=== PATIENT | female | born 1935 | race Caucasian/White ===

== ENCOUNTER 2020-10-03 14:39 | Inpatient (IN) | payer OTHER, MEDICAID ==
[~2020-10-03] VITALS: Ht 152.4 cm; Wt 61.8 kg
[2020-10-03] MEDS ORDERED: SODIUM CHLORIDE 0.9% 1000ML BAG (SEPSIS BOLUS) IV ONE (15:00)
[2020-10-03] MEDS ORDERED: VANCOMYCIN 1 G PREMIX 200 ML IV ONE (15:00)
[2020-10-03] MEDS ORDERED: PIPERACILLIN/TAZ 3.375G PREMIX 50 ML IV ONE (15:00)
[2020-10-03 16:08] LABS: BASOPHILS % 0.3 % (0.0-2.0); EOSINOPHILS % 1.7 % (0.0-5.0); HEMATOCRIT. 32.5 % (36.0-48.0); HEMOGLOBIN. 10.2 g/dL (12.0-16.0); LYMPHOCYTES % 29.6 % (20.0-50.0); MEAN CORPUSCULAR HEMOGLOBIN 29.3 pg (28.0-32.0); MEAN CORPUSCULAR VOLUME 93.4 fL (81.0-99.0); MEAN PLATELET VOLUME 11.9 fl (7.4-10.4); MONOCYTES % 13.2 % (2.0-8.0); NEUTROPHILS % 55.2 % (40.0-76.0); PLATELET 159 x1000/uL (130-400); RED BLOOD CELL COUNT 3.48 mill/uL (4.2-5.4); RED CELL DISTRIBUTION WIDTH 16.4 % (11.6-14.6)
[2020-10-03 17:19] LABS: CLARITY URINE CLEAR (CLEAR); COLOR URINE YELLOW (YELLOW); KETONES URINE NEGATIVE (NEGATIVE); LEUKOCYTE ESTERASE URINE TRACE (NEGATIVE); NITRITE URINE NEGATIVE (NEGATIVE); OCCULT BLOOD URINE NEGATIVE (NEGATIVE); PH URINE 5.5 (4.5-8.0); PROTEIN URINE NEGATIVE (NEGATIVE); UROBILINOGEN URINE 0.2 E.U./dL (0.2-1.0)
[2020-10-03 17:31] LABS: CHLORIDE 115 mEq/L (98-107)
[2020-10-03 17:46] LABS: PARTIAL THROMBOPLASTIN TIME < 21.0 sec (23.4-31.0); PROTHROMBIN TIME 10.6 sec (9.6-11.0)
[2020-10-03 19:19] LABS: VALPROIC ACID <3.0 ug/mL ug/mL (50-100)
[2020-10-03 19:26] LABS: CARBAMAZEPINE < 0.5 ug/mL (4-12); PHENOBARBITAL < 2.1 ug/mL (15.0-40.0)
[2020-10-03] MEDS ORDERED: IPRATROPIUM/ALBUTEROL 0.5-3(2.5)MG/3ML NEB NEB PRN (20:15)
[2020-10-03] MEDS ORDERED: ACETAMINOPHEN 325MG TABLET PO PRN ×2 (20:15)
[2020-10-03] MEDS ORDERED: GUAIFENESIN 200MG/10ML SUGAR FREE UDC PO PRN (20:15)
[2020-10-03] MEDS ORDERED: NITROGLYCERIN 0.4MG TABLET SL SL PRN (20:15)
[2020-10-03] MEDS ORDERED: ONDANSETRON HCL 4MG/2ML INJ IV PRN (20:15)
[2020-10-03] MEDS ORDERED: ZOLPIDEM TARTRATE 5MG TABLET PO PRN (20:15)
[2020-10-03] MEDS ORDERED: CLONIDINE 0.1MG TABLET PO PRN (20:15)
[2020-10-03] MEDS ORDERED: NA PHOS,M-B/NA PHOS,DI-BA ENEMA 118ML PR PRN (20:15)
[2020-10-03] MEDS ORDERED: MAGNESIUM/ALUMINUM HYDROXIDE/SIMETHICONE 30ML UDC PO PRN (20:15)
[2020-10-03] MEDS ORDERED: DOCUSATE SODIUM 100MG CAPSULE PO PRN (20:15)
[2020-10-03] MEDS ORDERED: LEVOFLOXACIN 500MG PREMIX 100 ML IV NR (21:00)
[2020-10-03] MEDS: ASCORBIC ACID 500 MG TABLET PO SCH (21:26)
[2020-10-03] MEDS: FAMOTIDINE 20MG TABLET PO SCH (21:26)
[2020-10-03] MEDS: ENOXAPARIN 30MG/0.3ML SYR SUBCUT SCH (21:27)
[2020-10-03] MEDS ORDERED: DEXTROSE 50% WATER 50ML SYRINGE IV PRN (21:45)
[2020-10-03 22:59] LABS: CREATINE KINASE 99 IU/L (26-192)
[2020-10-03 23:00] LABS: CREATINE KINASE MB FRACTION 1.6 ng/mL (0.5-3.6); T4 FREE 1.16 ng/dL (0.76-1.46)
[2020-10-03 23:15] LABS: FOLIC ACID (FOLATE) SERUM 15.3 ng/mL (>5.38)
[2020-10-03 23:19] VITALS: BP 156/57
[2020-10-04] MEDS: INSULIN LISPRO 100 UNITS/ML SUBCUT SCH ×4 (06:17→21:08)
[2020-10-04] MEDS: BLOOD SUGAR DIAGNOSTIC STRIP TEST SCH ×4 (06:17→21:08)
[2020-10-04 06:52] LABS: CHLORIDE 116 mEq/L (98-107)
[2020-10-04 06:53] LABS: BASOPHILS % 0.8 % (0.0-2.0); EOSINOPHILS % 2.6 % (0.0-5.0); HEMATOCRIT. 26.8 % (36.0-48.0); HEMOGLOBIN. 8.7 g/dL (12.0-16.0); LYMPHOCYTES % 31.3 % (20.0-50.0); MEAN CORPUSCULAR HEMOGLOBIN 29.5 pg (28.0-32.0); MEAN CORPUSCULAR VOLUME 90.3 fL (81.0-99.0); MEAN PLATELET VOLUME 12.1 fl (7.4-10.4); MONOCYTES % 8.5 % (2.0-8.0); NEUTROPHILS % 56.8 % (40.0-76.0); PLATELET 147 x1000/uL (130-400); RED BLOOD CELL COUNT 2.97 mill/uL (4.2-5.4); RED CELL DISTRIBUTION WIDTH 15.9 % (11.6-14.6)
[2020-10-04 07:06] LABS: PHOSPHORUS 2.4 mg/dL (2.5-4.9)
[2020-10-04 07:09] LABS: CREATINE KINASE 84 IU/L (26-192)
[2020-10-04 07:13] LABS: CREATINE KINASE MB FRACTION 1.1 ng/mL (0.5-3.6)
[2020-10-04 08:00] VITALS: BP 144/52
[2020-10-04] MEDS ORDERED: CEFTRIAXONE 1 G PREMIX 50 ML IV SCH (09:00)
[2020-10-04] MEDS: CEFTRIAXONE 1,000 MG in DEXTROSE 5% WATER 50 ML IV SCH (10:14)
[2020-10-04] MEDS: CHOLECALCIFEROL (D3) 1000 UNIT TABLET PO SCH (10:14)
[2020-10-04] MEDS: ASCORBIC ACID 500 MG TABLET PO SCH ×2 (10:15→21:07)
[2020-10-04] MEDS: ASPIRIN 325MG EC TABLET PO SCH (10:15)
[2020-10-04] MEDS: ZINC SULFATE 220 MG ( 50 ) CAPSULE PO SCH (10:15)
[2020-10-04 12:00] VITALS: BP 159/47
[2020-10-04] MEDS ORDERED: MAGNESIUM 2 G PREMIX 50 ML IV NR (14:00)
[2020-10-04 16:00] VITALS: BP 157/55
[2020-10-04 20:00] VITALS: BP 148/47
[2020-10-04] MEDS: FAMOTIDINE 20MG TABLET PO SCH (21:07)
[2020-10-04] MEDS: ENOXAPARIN 30MG/0.3ML SYR SUBCUT SCH (21:07)
[2020-10-05] VITALS: BP 114/43
[2020-10-05 04:00] VITALS: BP 142/40
[2020-10-05] MEDS: BLOOD SUGAR DIAGNOSTIC STRIP TEST SCH ×3 (06:03→16:40)
[2020-10-05] MEDS: INSULIN LISPRO 100 UNITS/ML SUBCUT SCH ×3 (06:03→17:10)
[2020-10-05 08:00] VITALS: BP 112/46
[2020-10-05] MEDS: CHOLECALCIFEROL (D3) 1000 UNIT TABLET PO SCH (09:16)
[2020-10-05] MEDS: ZINC SULFATE 220 MG ( 50 ) CAPSULE PO SCH (09:16)
[2020-10-05] MEDS: ASPIRIN 325MG EC TABLET PO SCH (09:16)
[2020-10-05] MEDS: CEFTRIAXONE 1,000 MG in DEXTROSE 5% WATER 50 ML IV SCH (09:16)
[2020-10-05] MEDS: ASCORBIC ACID 500 MG TABLET PO SCH (09:16)
[2020-10-05 12:00] VITALS: BP_SYST 171; BP_SYST 195; BP_SYST 198; BP_DIAS 49; BP_DIAS 64; BP_DIAS 69
[2020-10-05] MEDS ORDERED: HYDRALAZINE 20MG/ML VIAL IV NR (12:15)
[2020-10-05 13:13] LABS: BASOPHILS % 0.6 % (0.0-2.0); EOSINOPHILS % 2.9 % (0.0-5.0); HEMATOCRIT. 28.5 % (36.0-48.0); HEMOGLOBIN. 9.8 g/dL (12.0-16.0); LYMPHOCYTES % 27.9 % (20.0-50.0); MEAN CORPUSCULAR VOLUME 89.7 fL (81.0-99.0); MEAN PLATELET VOLUME 10.9 fl (7.4-10.4); MONOCYTES % 8.9 % (2.0-8.0); NEUTROPHILS % 59.7 % (40.0-76.0); PLATELET 168 x1000/uL (130-400); RED BLOOD CELL COUNT 3.18 mill/uL (4.2-5.4); RED CELL DISTRIBUTION WIDTH 16.2 % (11.6-14.6)
[2020-10-05 13:26] LABS: CHLORIDE 108 mEq/L (98-107)
[2020-10-05] MEDS ORDERED: LEVOFLOXACIN 250MG PREMIX 50 ML IV SCH ×2 (14:00→21:00)
[2020-10-05] MEDS ORDERED: ASPI-1497 MT (14:41)
[2020-10-05] MEDS ORDERED: LEVO250T58 MT (14:41)
[2020-10-05] MEDS ORDERED: AMLO5TAB4 MT (14:41)
[2020-10-05] MEDS ORDERED: METO25TA6 MT (14:41)
[2020-10-05] MEDS ORDERED: AMLODIPINE 5MG TABLET PO NR (15:00)
[2020-10-05 16:00] VITALS: BP 159/63
[2020-10-05 16:35] VITALS: BP 159/63
== END 2020-10-05 17:55 | disposition home or self-care (01) | DRG 689 ==
LOC: ER 14:39 → EDBEDREQ 20:04 → EDBEDREQTM 20:04 → SUPCPDRO 20:14 → ENRESERV 21:41 → 7EST 22:58
PROVIDERS: ADMIT Internal Medicine; ATTEND Internal Medicine
DX: N39.0 Urinary tract infection, site not specified (principal); G92 Toxic encephalopathy; E87.2 Acidosis; N17.9 Acute kidney failure, unspecified; E11.9 Type 2 diabetes mellitus without complications; I10 Essential (primary) hypertension; G40.909 Epilepsy, unspecified, not intractable, without status epilepticus; E86.0 Dehydration; I95.9 Hypotension, unspecified; D64.9 Anemia, unspecified; Z79.4 Long term (current) use of insulin; G90.9 Disorder of the autonomic nervous system, unspecified; D63.8 Anemia in other chronic diseases classified elsewhere
CPT/HCPCS: 36415; 71045; 80053; 80156; 80165; 80184; 80185; 81003; 82550; 82553; 82607; 82746; 82962; 83036; 83540; 83550; 83605; 83735; 84100; 84145; 84439; 84443; 84484; 85025; 93005; 93880; 93970; 97162; 97165; 99291; J0360; J0696; J1650; J1815; J1956; J2543; J3370; J3475; J7030; J7060

== ENCOUNTER 2022-04-17 15:31 | Emergency (ER) | payer OTHER, MEDICAID ==
[~2022-04-17] VITALS: Ht 162.6 cm; Wt 45.0 kg
[~2022-04-17 15:31] MED LIST: AMLO5TAB4 MT; ASPI-1497 MT; LEVO250T74 MT; METO25TA6 MT
[2022-04-17] MEDS ORDERED: ONDANSETRON HCL 4MG/2ML INJ IV ONE (15:45)
[2022-04-17] MEDS ORDERED: MECLIZINE 25MG TABLET PO ONE (15:45)
[2022-04-17] MEDS ORDERED: FAMOTIDINE 20MG/2ML VIAL IV ONE (15:45)
[2022-04-17] MEDS ORDERED: SODIUM CHLORIDE 0.9% 500 ML IV ONE (15:45)
[2022-04-17 16:53] LABS: CHLORIDE 99 mEq/L (98-107)
[2022-04-17 17:00] LABS: BASOPHILS % 0.6 % (0.0-2.0); EOSINOPHILS % 0.9 % (0.0-5.0); HEMATOCRIT. 28.1 % (36.0-48.0); HEMOGLOBIN. 9.1 g/dL (12.0-16.0); LYMPHOCYTES % 22.6 % (20.0-50.0); MEAN CORPUSCULAR HEMOGLOBIN 27.9 pg (28.0-32.0); MEAN CORPUSCULAR VOLUME 86.1 fL (81.0-99.0); MEAN PLATELET VOLUME 10.2 fl (7.4-10.4); MONOCYTES % 5.4 % (2.0-8.0); NEUTROPHILS % 70.5 % (40.0-76.0); PLATELET 419 x1000/uL (130-400); RED BLOOD CELL COUNT 3.27 mill/uL (4.2-5.4); RED CELL DISTRIBUTION WIDTH 16.8 % (11.6-14.6)
[2022-04-17 19:33] LABS: CLARITY URINE CLEAR (CLEAR); COLOR URINE YELLOW (YELLOW); KETONES URINE NEGATIVE (NEGATIVE); LEUKOCYTE ESTERASE URINE 1+ (NEGATIVE); NITRITE URINE POSITIVE (NEGATIVE); OCCULT BLOOD URINE NEGATIVE (NEGATIVE); PROTEIN URINE NEGATIVE (NEGATIVE); SPECIFIC GRAVITY URINE 1.007 (1.005-1.030); UROBILINOGEN URINE 0.2 E.U./dL (0.2-1.0)
[2022-04-17] MEDS ORDERED: CEFTRIAXONE 1 G PREMIX 50 ML IV ONE (19:45)
[2022-04-17 20:15] VITALS: BP 133/52
[2022-04-17] MEDS ORDERED: CEPH500C2 MT (20:45)
== END 2022-04-17 22:19 | disposition home or self-care (01) ==
LOC: ER 15:33
DX: R11.2 Nausea with vomiting, unspecified (principal); N39.0 Urinary tract infection, site not specified; R42 Dizziness and giddiness; R53.1 Weakness; E87.1 Hypo-osmolality and hyponatremia; D64.9 Anemia, unspecified; R94.31 Abnormal electrocardiogram [ECG] [EKG]
CPT/HCPCS: 36415; 70450; 71045; 80053; 81003; 82962; 83690; 84484; 85025; 93005; 96361; 96365; 96375; 99285; J0696; J2405; J3490; J7040; J8597